=== PATIENT | female | born 1945 | race Caucasian/White ===

== ENCOUNTER 2016-07-27 10:44 | Emergency (ER) | payer MEDICARE, MEDICAID ==
[2016-07-27] MEDS ORDERED: HYDROCODON-ACE1 EA16 PO (11:08)
[2016-07-27] MEDS ORDERED: CYCLOBENZAPRINE10 M1 PO (11:19)
[2016-07-27] MEDS ORDERED: NORCO 5-325 TA1 EACH PO (11:19)
== END 2016-07-27 11:30 ==
LOC: EDMED 10:44
DX: S30.1XXA Contusion of abdominal wall, initial encounter (principal); W01.0XXA Fall on same level from slipping, tripping and stumbling without subsequent striking against object, initial encounter